=== PATIENT | male | born 1985 | race Caucasian/White ===

== ENCOUNTER 2017-05-30 10:15 | Outpatient (RCR) | payer OTHER | END 2017-07-09 08:33 | disposition home or self-care (01) | LOC: WSPT 10:15 | DX: S93.422D Sprain of deltoid ligament of left ankle, subsequent encounter (principal); S90.02XD Contusion of left ankle, subsequent encounter ==

== ENCOUNTER 2023-09-15 08:09 | Inpatient (IN) | payer BC ==
[~2023-09-15] VITALS: Ht 182.9 cm; Wt 132.4 kg
[2023-09-15] MEDS ORDERED: NS 1,000 ML IV ONE (08:30)
[2023-09-15] MEDS ORDERED: Albuterol/Ipratropium 3 MG-0.5 MG/3 ML Neb Soln IH ONE (08:30)
[2023-09-15 09:06] LABS: BASO # 0.1 K/mm3 (0.0-0.2); BASO % 0.6 % (0.0-2.0); EOS # 0.3 K/mm3 (0.0-0.7); EOS % 1.8 % (0.0-4.0); GRAN # 11.9 K/mm3 (1.4-6.5); GRAN % 76.2 % (42.2-75.2); HEMATOCRIT 47.4 % (42.0-52.0); LYMPH # 2.2 K/mm3 (1.2-3.4); LYMPH % 14.3 % (20.0-51.0); MEAN CELL VOLUME 90 fl (80.0-100.0); MEAN CORPUSCULAR HEMOGLOBIN 30 pg (27-31); MEAN CORPUSCULAR HGB CONC 34 g/dl (33.0-37.0); MEAN PLATELET VOLUME 10.3 fl (7.4-10.4); MONO # 0.9 K/mm3 (0.1-0.6); MONO % 5.9 % (1.7-9.3); PLATELET COUNT 274 K/mm3 (130-400); RED BLOOD COUNT 5.26 M/mm3 (4.20-5.60); REDCELL DISTRIBUTION WIDTH-CV 13.1 % (11.5-14.5)
[2023-09-15 09:21] LABS: ALBUMIN 3.3 g/dL (3.5-5.0); BILIRUBIN,TOTAL 1.1 mg/dL (0.2-1.2); C-REACTIVE PROTEIN 9.03 mg/dL (0.00-0.50); CALCIUM 9.7 mg/dL (8.4-10.2); CREATININE, serum 0.99 mg/dL (0.72-1.25); POTASSIUM 3.7 mEq/L (3.5-4.5); TOTAL PROTEIN 7.2 g/dl (6.2-8.1)
[2023-09-15] MEDS ORDERED: dexAMETHasone 10 MG/ML VIAL IV ONE (10:45)
[2023-09-15 13:00] VITALS: BP 156/82; PULSE 112; TEMP 98.2
[2023-09-15] MEDS ORDERED: Doxycycline Monohydrate 100 MG CAP PO SCH (13:29)
[2023-09-15] MEDS ORDERED: Ondansetron 4 MG/2 ML VIAL IV PRN (13:30)
[2023-09-15] MEDS ORDERED: Acetaminophen 500 MG TAB PO PRN (13:30)
[2023-09-15] MEDS ORDERED: Albuterol/Ipratropium 3 MG-0.5 MG/3 ML Neb Soln IH PRN (13:30)
[2023-09-15] MEDS ORDERED: NS 1,000 ML IV SCH (13:30)
[2023-09-15] MEDS ORDERED: guaiFENesin/Codeine Oral Soln 100-10 MG/5 ML 5 ML UD PO PRN (14:00)
[2023-09-15] MEDS ORDERED: Benzonatate 100 MG CAP PO SCH (14:00)
[2023-09-15] MEDS ORDERED: Menthol Cough/Sore Throat LOZENGE MM PRN (14:00)
[2023-09-15] MEDS ORDERED: Albuterol/Ipratropium 3 MG-0.5 MG/3 ML Neb Soln IH SCH (15:00)
[2023-09-15 15:44] VITALS: BP 152/63; PULSE 104; TEMP 98.1
[2023-09-15 17:04] VITALS: BP_SYST 152
--- NOTE | 2023-09-15 17:20 | NUR ---
Pt admitted to room 307 at approximately 1230 with diagnosis of pneumonitis. Flu and COVID negative- however- droplet precautions in place per MD order. Patient reports SOA at times. O2 4L/NC. brought in patient's home cpap machine. R.T. notified so oxygen can be bled into cpap with use. IVF infusing to as ordered. Urine collected and sent to lab, results pending. Sputum culture needed- patient educated and verbalizes understanding. Reports productive cough with thick green sputum. Independent in room. Denies pain or needs.
[2023-09-15] MEDS ORDERED: Iohexol 300 - 100 ML VIAL IV ONE (18:07)
[2023-09-15] MEDS ORDERED: NS 100 ML IV.SOLN. IY SCH (18:08)
[2023-09-15 20:19] VITALS: BP 177/87; PULSE 102; TEMP 99
--- NOTE | 2023-09-15 20:28 | NUR ---
CALL PLACED TO [facility]. PATIENT HYPERTENSIVE BP 187/81. TORB FOR IV HYDRLAZINE GIVEN.
[2023-09-15] MEDS ORDERED: hydrALAZINE 20 MG/ML 1 ML VIAL IV PRN (20:30)
[2023-09-15 21:00] VITALS: BP_SYST 142
[2023-09-15 22:22] VITALS: BP 142/62
[2023-09-15] MEDS ORDERED: Melatonin 3 MG TAB PO SCH (22:49)
--- NOTE | 2023-09-15 23:00 | NUR ---
SHIFT ASSESSMENT PERFORMED LATE SEE FOLLOWING NOTES. SHIFT ASSESSMENT COMPLETE. MED PASS PERFORMED BY PLANT MAINTENANCE TECHNICIAN THIS NURSE WAS ATTENDING TO COMFORT CARE PATIENT. LUNG SOUNDS DIMINISHED IN ALL QUADRANTS. PATIENT DENIES CHEST PAIN OR SOA, HOWEVER, DYSPNEIA NOTED DURING ASSESSMENT QUESTIONS. PATIENT STATED DIFFICULTY SLEEPING, CALL PLACED TO HOSPITALIST-[facility] FOR MELATONIN GIVEN. CPAP WITH 3L BLEED IN INITIATED BY RT. CALL LIGHT WITHIN REACH. BP WNL FOLLOWING HYDRALAZINE IV. CURRENT VS ARE WNL.
[2023-09-16] VITALS (12 sets, daily range): BP systolic 125–156; BP diastolic 56–92; PULSE 85–110; TEMP 97.6–98.5
--- NOTE | 2023-09-16 03:00 | NUR ---
ROUNDED ON PATIENT, SLEEPING SOUNDLY ON RT SIDE. VS ARE WNL. NO SIGNS OF DISTRESS.
[2023-09-16 06:31] LABS: BASO # 0.1 K/mm3 (0.0-0.2); BASO % 0.6 % (0.0-2.0); EOS # 0.2 K/mm3 (0.0-0.7); EOS % 1.2 % (0.0-4.0); GRAN # 12.2 K/mm3 (1.4-6.5); GRAN % 76.4 % (42.2-75.2); HEMATOCRIT 44.4 % (42.0-52.0); HEMOGLOBIN 14.9 g/dl (13.5-18.0); LYMPH # 2.5 K/mm3 (1.2-3.4); LYMPH % 15.6 % (20.0-51.0); MEAN CELL VOLUME 90 fl (80.0-100.0); MEAN CORPUSCULAR HEMOGLOBIN 30 pg (27-31); MEAN CORPUSCULAR HGB CONC 34 g/dl (33.0-37.0); MEAN PLATELET VOLUME 10.4 fl (7.4-10.4); MONO # 0.8 K/mm3 (0.1-0.6); MONO % 4.8 % (1.7-9.3); PLATELET COUNT 291 K/mm3 (130-400); RED BLOOD COUNT 4.94 M/mm3 (4.20-5.60); REDCELL DISTRIBUTION WIDTH-CV 13.3 % (11.5-14.5)
[2023-09-16 06:55] LABS: CREATININE, serum 0.88 mg/dL (0.72-1.25); MAGNESIUM 2.1 mg/dL (1.6-2.6); POTASSIUM 3.3 mEq/L (3.5-4.5)
--- NOTE | 2023-09-16 08:00 | NUR ---
PATIENT SITTING UP IN RECLINER. ALERT AND ORIENTED. RESPIRATORY AT BEDSIDE ADMINISTERING BREATHING TX. SHIFT ASSESSMENT COMPLETE. DENIES NEEDS OR CONCERNS AT THIS TIME. CALL LIGHT WITHIN REACH.
--- NOTE | 2023-09-16 08:19 | NUR ---
Late entry: SW met with patient at 1645 on 09/15/2023 to complete initial assessment for discharge planning. Patient verified that he lives in [place] with his Xena ([phone]) and their 10 and 11 year old children. Patient is active and independent, employed technology internship in construction. Patient sees Dr. Rueda as his PCP and uses [facility]. Patient has CPAP at home. Patient is covered by [facility] insurance. Plan is to return home at discharge. Discharge plan: Home
[2023-09-16] MEDS ORDERED: TESTOSTERONE SQ (08:51)
[2023-09-16] MEDS ORDERED: dexAMETHasone 4 MG TAB PO SCH (09:00)
[2023-09-16] MEDS ORDERED: Potassium Bicarbonate/Citrate 20 MEQ Effervescent TAB PO ONE (10:45)
[2023-09-16] MEDS ORDERED: Cefepime 1 G in Water For Injection,Sterile 10 ML IV SCH (11:00)
--- NOTE | 2023-09-16 11:06 | NUR ---
SOP2 95% ON 3 LPM NC DECREASED O2 TO 2 LPM NC. RN NOTIFIED
--- NOTE | 2023-09-16 15:03 | NUR ---
PATIENT AMBULATING THE HALLS WITH RT. O2 AT 1L VIA NC. TOLERATING WELL.
--- NOTE | 2023-09-16 15:11 | NUR ---
WALKED WITH PATIENT DOWN TO SURGICAL WINDOW AND BACK ON 1 LPM NC 93-94% RN NOTIFIED
--- NOTE | 2023-09-16 17:27 | NUR ---
PATIENT REMAINS AT 1L OF O2. AGREES TO TRY RA. DENIES SOA OR DIFFICULTY BREATHING.
--- NOTE | 2023-09-16 20:00 | NUR ---
Initial shift assessment done- denies pain, denies SOB, on RA, states is hungry- sandwich box given, visiting with family,, no requests, states is feeling better, still coughing-tessalon pearls given as ordered.CPAP at night.
[2023-09-17] VITALS (8 sets, daily range): BP systolic 142–163; BP diastolic 80–95; PULSE 81–98; TEMP 97.5–97.9
--- NOTE | 2023-09-17 06:35 | NUR ---
Quiet night- on his home CPAP all night- sats 92% RA, no requests, slept well
--- NOTE | 2023-09-17 06:50 | NUR ---
SPO2 ON RA 92%, HR 87, RATE 18, NPC, BS DI BASES, ASHA WEL RT TX.
--- NOTE | 2023-09-17 06:55 | NUR ---
awake sitting up in chair, bedside shift report received from MARTIN Peters
[2023-09-17 07:20] LABS: HEMATOCRIT 47.7 % (42.0-52.0); HEMOGLOBIN 16.1 g/dl (13.5-18.0); MEAN CELL VOLUME 90 fl (80.0-100.0); MEAN CORPUSCULAR HEMOGLOBIN 30 pg (27-31); MEAN CORPUSCULAR HGB CONC 34 g/dl (33.0-37.0); MEAN PLATELET VOLUME 10.4 fl (7.4-10.4); PLATELET COUNT 333 K/mm3 (130-400); RED BLOOD COUNT 5.33 M/mm3 (4.20-5.60); REDCELL DISTRIBUTION WIDTH-CV 13.4 % (11.5-14.5)
[2023-09-17 07:44] LABS: CALCIUM 9.7 mg/dL (8.4-10.2); CREATININE, serum 1.03 mg/dL (0.72-1.25); POTASSIUM 3.9 mEq/L (3.5-4.5)
[2023-09-17 08:11] LABS: BAND 2 % (0-10); EOSINOPHIL 2 % (0-4); LYMPHOCYTE 28 % (20.0-51.0); NEUTROPHILS 58 % (42.0-75.2)
[2023-09-17 08:12] LABS: PLATELET ESTIMATE NORMAL (NORMAL)
--- NOTE | 2023-09-17 08:40 | NUR ---
up and about in room independently, at bedside, full assessment completed, see interventions for further info, denies needs
[2023-09-17] MEDS ORDERED: DOXYCYCLINE 10100 MG PO (11:53)
[2023-09-17] MEDS ORDERED: TESSALON P100 MG/CAP PO (11:53)
[2023-09-17] MEDS ORDERED: PREDNISONE20 MG PO (11:54)
[2023-09-17] MEDS ORDERED: LEVAQUIN 750MG750 M1 PO (11:55)
[2023-09-17] MEDS ORDERED: DECADRON 4MG TAB4 MG PO (12:57)
--- NOTE | 2023-09-17 13:00 | NUR ---
discharge instructions given to patient, verbalizes understanding, discharged ambulatory
[2023-09-21 09:13] LABS: .HISTOPLASMA ANTIGEN SERUM Negative (())
== END 2023-09-17 13:00 | disposition home or self-care (01) | DRG 871 ==
LOC: COL.ER 08:09 → MEDICAL 11:42
PROVIDERS: Emergency Medicine; Internal Medicine; ADMIT Internal Medicine
DX: A41.9 Sepsis, unspecified organism (principal); J18.9 Pneumonia, unspecified organism; J96.01 Acute respiratory failure with hypoxia; Z20.822 Contact with and (suspected) exposure to COVID-19; I10 Essential (primary) hypertension; Z98.52 Vasectomy status; Z88.8 Allergy status to other drugs, medicaments and biological substances
CPT/HCPCS: J0360; J0692; J1100; J1650; J7030; J8540; Q9967